=== PATIENT | male | born 1980 | race Caucasian/White ===

== ENCOUNTER 2023-03-30 09:44 | Emergency (ER) | payer BC ==
[2023-03-30] MEDS: Ketorolac 30 MG/ML SDV IVPUSH ONE (10:36)
[2023-03-30] MEDS ORDERED: Iopamidol 755 Mg/ML 100 ML Bottle IV SCH (10:45)
[2023-03-30] MEDS: Ciprofloxacin 500 MG Tab PO ONE (11:07)
== END 2023-03-30 11:11 | disposition home or self-care (01) ==
LOC: FB.ED 09:44
DX: R10.32 Left lower quadrant pain (principal)
CPT/HCPCS: 96374; 99283-25; 99284; A9270-GY; J1885